=== PATIENT | male | born 1950 | race Caucasian/White ===

== ENCOUNTER 2021-11-21 19:30 | Outpatient (CLI) | payer MEDICARE, OTHER | END 2021-11-21 19:31 | disposition home or self-care (01) | LOC: SLEEPLAB 19:30 | PROVIDERS: ATTEND Internal Medicine Cardiovascular Disease | DX: G47.33 Obstructive sleep apnea (adult) (pediatric) (principal); I48.91 Unspecified atrial fibrillation; I10 Essential (primary) hypertension; R06.83 Snoring; G47.10 Hypersomnia, unspecified; G47.00 Insomnia, unspecified | CPT/HCPCS: 95810 ==

== ENCOUNTER 2024-12-20 08:47 | Day surgery (SDC) | payer MEDICARE, OTHER ==
[2024-12-16 11:17] VITALS: BMI 31.6
[2024-12-20] MEDS ORDERED: Bacitracin Zinc Ointment 30 gm TUBE ONE (09:14)
[2024-12-20] MEDS ORDERED: Ropivacaine 0.5% HCl/PF (150 MG/30 ML VIAL) ONE (09:36)
[2024-12-20] MEDS ORDERED: Ropivacaine 0.2% HCl/PF 20 ML ONE (09:36)
[2024-12-20] MEDS ORDERED: Ondansetron PF 4 MG/2 ML Vial ONE (09:37)
[2024-12-20] MEDS ORDERED: Lidocaine 1% PF 5 ML VIAL ONE (09:37)
[2024-12-20] MEDS ORDERED: CEFAZOLIN 2 GM VIAL ONE (09:41)
[2024-12-20] MEDS ORDERED: PROPOFOL 200 MG/20 ML VIAL ONE (09:59)
[2024-12-20] MEDS ORDERED: Ketorolac Tromethamine 30 MG (1 mL) VIAL ONE (13:49)
[2024-12-20] MEDS ORDERED: Gentamicin Ophth Soln 0.3% 5 ml Bottle L EYE SCH (17:00)
== END 2024-12-20 15:23 | disposition home or self-care (01) ==
LOC: SDC 08:47
PROVIDERS: ATTEND Orthopaedic Surgery Hand Surgery
PROC: 0RBP4ZZ Excision of Left Wrist Joint, Percutaneous Endoscopic Approach (ICD-10-PCS; principal; 2024-12-20)
PROC: 0RBP4ZZ Excision of Left Wrist Joint, Percutaneous Endoscopic Approach (ICD-10-PCS; 2024-12-20)
DX: S63.592A Other specified sprain of left wrist, initial encounter (principal); D17.79 Benign lipomatous neoplasm of other sites; M77.8 Other enthesopathies, not elsewhere classified
CPT/HCPCS: 20245; 25390; 29846; 64415; 73090; A6223; C1713 ×6; J0169; J1885; J2250; J2405; J2704; J2795 ×2; J3010; 88304

== ENCOUNTER 2024-12-30 12:05 | Outpatient (CLI) | payer MEDICARE, OTHER | END 2024-12-30 12:06 | disposition home or self-care (01) | LOC: ULT 12:05 | PROVIDERS: ATTEND Nurse Practitioner Family | DX: E74.8 Other specified disorders of carbohydrate metabolism (principal); R93.89 Abnormal findings on diagnostic imaging of other specified body structures; R09.89 Other specified symptoms and signs involving the circulatory and respiratory systems; R42 Dizziness and giddiness | CPT/HCPCS: 93880 ==